=== PATIENT | female | born 1985 | race Caucasian/White ===

== ENCOUNTER 2017-02-27 17:38 | Inpatient (IN) | payer BC, OTHER ==
[~2017-02-27] VITALS: Ht 160 cm; Wt 65.8 kg
[2017-02-27] MEDS ORDERED: DIAZEPAM 5 MG TABLET PO PRN (18:30)
[2017-02-27] MEDS ORDERED: ONDANSETRON ODT 4 MG TAB.RAPDIS SL PRN (18:30)
[2017-02-27] MEDS ORDERED: DICYCLOMINE HCL 20 MG TABLET PO PRN (18:30)
[2017-02-27] MEDS ORDERED: MAGNESIUM HYDROXIDE 30 ML LIQUID UDC PO PRN (18:30)
[2017-02-27] MEDS ORDERED: DIAZEPAM 10 MG TABLET PO PRN ×2 (18:30)
[2017-02-27] MEDS ORDERED: MAG HYDROX/AL HYDROX/SIMETH 30 ML LIQUID UDC PO PRN (18:30)
[2017-02-27] MEDS ORDERED: BUPRENORPHINE HCL 2 MG TAB.SUBL SL PRN (18:30)
[2017-02-27] MEDS ORDERED: CLONIDINE HCL 0.1 MG TABLET PO PRN (18:30)
[2017-02-27] MEDS ORDERED: LOPERAMIDE HCL 2 MG CAPSULE PO PRN ×2 (18:30)
[2017-02-27] MEDS ORDERED: LORAZEPAM 2 MG/1 ML VIAL IM PRN (18:30)
[2017-02-27] MEDS ORDERED: ONDANSETRON 4 MG/2 ML VIAL IM PRN (18:30)
[2017-02-27] MEDS ORDERED: HYDROXYZINE PAMOATE 25 MG CAPSULE PO PRN (18:30)
[2017-02-27] MEDS ORDERED: diphenhydrAMINE 50 MG CAPSULE PO PRN (18:30)
[2017-02-27 19:53] LABS: *URINE HCG, QUAL NEGATIVE (NEGATIVE)
[2017-02-27 20:00] VITALS: BP 130/86
[2017-02-27 20:08] LABS: *AMPHETAMINE, URINE NEGATIVE (NEGATIVE); *BARBITURATE, URINE NEGATIVE (NEGATIVE); *CANNABINOID, URINE NEGATIVE (NEGATIVE); *COCCAINE, URINE NEGATIVE (NEGATIVE); *OPIATE, URINE POSITIVE (NEGATIVE); *PHENCYCLIDINE SCREEN,URINE NEGATIVE (NEGATIVE)
[2017-02-27 21:29] LABS: BASOPHILS % (AUTO) 0.6 % (0.0-2.0); EOSINOPHILS # (AUTO) 0.5 K/uL (0.0-0.7); EOSINOPHILS % (AUTO) 5.7 % (0.0-7.0); HEMATOCRIT 40.7 % (37.0-47.0); HEMOGLOBIN 13.7 g/dL (12.0-16.0); LYMPHOCYTES # (AUTO) 1.9 K/uL (0.8-4.8); LYMPHOCYTES % (AUTO) 23.2 % (20.5-51.5); MEAN CORPUSCULAR HEMOGLOBIN 31.3 uug (27.0-31.0); MEAN CORPUSCULAR HGB CONC 34 g/dL (32.0-37.0); MEAN CORPUSCULAR VOLUME 92.8 fL (81.0-99.0); MONOCYTES # (AUTO) 0.6 K/uL (0.1-1.30); MONOCYTES % (AUTO) 7.5 % (0.0-11.0); NEUTROPHILS # (AUTO) 5.3 K/uL (1.8-8.9); PLATELET COUNT (AUTO) 248 K/uL (150-450); RED BLOOD CELL COUNT(AUTO) 4.38 MIL/uL (4.20-5.40); RED CELL DISTRIBUTION WIDTH 13.2 % (11.5-14.5); WHITE BLOOD COUNT (AUTO) 8.3 K/uL (4.0-11.2)
--- NOTE | 2017-02-27 21:30 | NUR ---
ADMISSION NOTE BP: 130/86 HR: 88 RR: 16 SpO2: 95 % T: 97.8 Pain: denies pain at this time Ht: 5'3" Wt: 145 lbs COWS:2, CIWA:2 Pt arrived ambulatory from [facility] Intake to the third floor accompanied by a BHT at 1850. Pt is a 31 year old female who was admitted on 02/27/17 for benzodiazepine and opiate dependency. Pt is full code with allergy to sulfa. She reports PMHx of laparoscopic surgery 6 years ago, endometriosis, and anxiety. She reports a history of seizure " a couple years ago" related to benzodiazepine withdrawal. She denies any recent falls. She denies having a PCP. She reports taking home medications of: 1. Ibuprofen 800 mg 2. Tylenol 600 mg She verbalized that she is here for Xanax and Heroin dependency. She reports that she was recently at a treatment center ( unable to recall name of center) in January 2017 for 30 days. She describes her current use as: 1. Xanax 2 -6 mg daily for 3 weeks. Last dose: "3 bars" on 02/27/17 2. Heroin 1 gram IV daily for 3 weeks. Last dose: pt unable to recall amount, 02/27/17 She describes her withdrawal symptoms as " irritable, sweaty, chills, diarrhea, back pain and nausea." Upon assessment, pt is alert and oriented x4. She appears tired, calm and cooperative. Able to answer interview questions. Speech is slurred but audible. Heart rate is regular, pt denies any chest pain or SOB. PERRLA, breathing is even and unlabored. Lung sounds clear. Abdomen is soft and non distended, bowel sounds present, last BM (02/27/17). Pt reports that BM is regular. Pt noted with "possible" abscess to right buttock. She states " I tried to shoot up there." She reports pain upon palpation. No drainage noted. Photo taken and placed in chart. MD aware of pt's admission. She was oriented to room and unit. Breathing is even and unlabored, safety measures in place. Will continue to monitor.
[2017-02-27 21:48] LABS: ALANINE AMINOTRANSFERASE 22 U/L (14-59); ALBUMIN 3.7 g/dL (3.4-5.0); ALKALINE PHOSPHATASE 68 U/L (50-136); ASPARTATE AMINOTRANSFERASE 20 U/L (15-37); BILIRUBIN,TOTAL 0.3 mg/dL (0.2-1.0); CALCIUM 8.9 mg/dL (8.5-10.1); CARBON DIOXIDE 32 mmol/L (21-32); CHLORIDE 104 mmol/L (98-107); CREATININE 0.8 mg/dL (0.6-1.3); GFR 84 mL/min (>60); GLUCOSE 95 mg/dL (74-106); POTASSIUM 3.6 mmol/L (3.5-5.1); SODIUM SERUM 142 mmol/L (136-145); TOTAL PROTEIN, SERUM 7.3 g/dL (6.4-8.2); UREA NITROGEN, BLOOD 11 mg/dL (7-18)
[2017-02-27 21:58] LABS: ETHANOL < 3 MG/DL (0-0)
[2017-02-27 22:08] LABS: HIV-1 p24 ANTIGEN NON REACTIVE (NONREACTIVE); HIV-1/2 ANTIBODY NON REACTIVE (NONREACTIVE)
[2017-02-27 22:16] LABS: THYROID STIMULATING HORMONE 1.506 mIU/mL (0.358-3.740)
[2017-02-28] VITALS: BP_SYST 108; BP_SYST 112; BP_DIAS 62; BP_DIAS 72
[2017-02-28] MEDS ORDERED: IBUP-1482 PO (02:15)
[2017-02-28] MEDS ORDERED: ACET-2154 PO (02:15)
[2017-02-28] MEDS: IBUPROFEN 600 MG TABLET PO PRN ×3 (02:20→18:04)
--- NOTE | 2017-02-28 02:22 | NUR ---
PRN IBUPROFEN Pt complains of headache 06/03. PRN Ibuprofen administered as ordered. Breathing even and unlabored, respirations 16. Safety measures in place, will continue to monitor effectiveness of medication.
--- NOTE | 2017-02-28 03:22 | NUR ---
PRN IBUPROFEN REASSESSMENT PRN medication effective. Pt lying comfortably in bed with eyes closed noted to be asleep. Respirations 16, breathing is even and unlabored. Pt safe with bed locked in lowest position, side rails up x2 and call light within reach. Will continue to monitor.
[2017-02-28 04:00] VITALS: BP 125/83
[2017-02-28] MEDS: METHOCARBAMOL 750 MG TABLET PO PRN ×2 (05:50→18:04)
--- NOTE | 2017-02-28 05:50 | NUR ---
PRN ROBAXIN Pt complains of lower back muscle pain 05/04. PRN Robaxin administered as ordered. Breathing even and unlabored, safety measures in place. Will continue to monitor effectiveness.
--- NOTE | 2017-02-28 05:57 | NUR ---
PRN VALIUM Pt complains of anxiety. Pt appears flushed, anxious and agitated. Pt noted to be sitting up, restless in bed. CIWA:6. PRN Valium administered as ordered. Breathing is even and unlabored, safety measures in place. Will continue to monitor effectiveness.
--- NOTE | 2017-02-28 06:50 | NUR ---
PRN ROBAXIN REASSESSMENT PRN Robaxin effective. Pt lying in bed noted to be asleep. No evidence of pain at this time. Respirations 16, breathing is even and unlabored. Pt safe with bed locked in lowest position, side rails up x2 and call light within reach. Will continue to monitor.
--- NOTE | 2017-02-28 06:57 | NUR ---
PRN VALIUM REASSESSMENT PRN medication effective. Pt appears to be calm, no anxiety or restlessness noted. Pt lying in bed with eyes closed, and is asleep. Respirations 16, breathing is even and unlabored. Will endorse.
--- NOTE | 2017-02-28 07:15 | NUR ---
END OF SHIFT Pt remained stable during shift. Pt complained of headache and received PRN Motrin. She also complained of lower back muscle pain and received PRN Robaxin. Pt experienced anxiety/agitation, and appeared flushed related to withdrawal and received Valium 5 mg for CIWA:6. @ 0557. PRN medications were effective. She slept a total of 5 hrs, Intake:[id number] Void:x1 BM:0 Breathing is even and unlabored. Pt safe with bed locked in lowest position, side rails up x2 and call light within reach. Endorsed to AM shift.
[2017-02-28 08:00] VITALS: BP 112/72
--- NOTE | 2017-02-28 08:00 | NUR ---
START OF SHIFT NOTE: Received report from power and recovery shift engineer nurse. Patient is 31 year old female, admitted for Xanax and Heroin IV dependence, admitted on 02/27/17. Patient is alert and oriented X4, denies any chest pain, SOB, dizziness, n/v at this time. Vital signs WNL. Patient is full code, on regular diet and allergy is sulfa drugs. On seizure and fall precautions. Patient is ambulatory with steady gait. Slept 5 hours and received prn motrin and Robaxin from power and recovery shift engineer. On 4 day taper on Valium starting 02/29/16 and 4 day Subutex starting 02/28/17. Recent CIWA was 6 and COWS was 4. Pending MRSA swab. Will continue to monitor patient.
[2017-02-28] MEDS: BUPRENORPHINE HCL 2 MG TAB.SUBL SL SCH ×3 (09:00→21:23)
[2017-02-28] MEDS ORDERED: TUBERCULIN,PURIF.PROT.DERIV. 5 TU/0.1 ML TEST ID ONE (09:00)
--- NOTE | 2017-02-28 09:00 | NUR ---
SUBUTEX HOLD Pt with cows=8. Pt denies any chills or sweats at this time. No distress noted at this time. Will continue to monitor and assess.
[2017-02-28] MEDS: ESCITALOPRAM OXALATE 10 MG TABLET PO SCH (09:10)
[2017-02-28] MEDS: MULTIVITAMINS,THERAPEUTIC TABLET PO SCH (09:11)
--- NOTE | 2017-02-28 09:11 | NUR ---
PRN MEDICATION (IBUPROFEN AND CLONIDINE) Patient complained of body pain and anxiety. PRN clonidine and ibuprofen were given to patient.
[2017-02-28] MEDS: DIAZEPAM 10 MG TABLET PO SCH ×3 (09:12→21:22)
[2017-02-28] MEDS: GABAPENTIN 300 MG CAPSULE PO SCH ×2 (09:12→21:22)
--- NOTE | 2017-02-28 10:00 | NUR ---
REASSESSMENT Patient reports pain decreased 3/10 and reports feeling calmer. PRN meds effective.
[2017-02-28 12:00] VITALS: BP 102/62
--- NOTE | 2017-02-28 12:21 | NUR ---
PRN SUBUTEX Patient's COWS is 14. Patient complains of discomfort and increased signs and symptoms of withdrawals, patient reported diaphoresis and fidgety. Patient was observed restless. PRN Subutex administered. Will continue to monitor patient.
--- NOTE | 2017-02-28 13:20 | NUR ---
REASSESSMENT Patient is resting in bed, appears calmer, no distress noted, pt. reports less diaphoresis and feels better at this time. COWS is 1 at this time.
[2017-02-28 16:00] VITALS: BP 105/67
[2017-02-28] MEDS: BENZOCAINE ORAL CARE 12 ML BOTTLE MM PRN ×2 (17:49→21:24)
--- NOTE | 2017-02-28 17:59 | NUR ---
PRN ANBESOL Patient complained of R upper tooth ache, 9/10, throbbing pain. MD was notified and ordered Anbesol which was then administered to patient. Medication education provided to patient, pt. verbalized understanding. Will continue to monitor patient.
--- NOTE | 2017-02-28 18:04 | NUR ---
PRN PAIN MEDICATION (IBUPROFEN AND ROBAXIN) Patient complained of pain on low back 7/10 and generalized pain 3/10. PRN ibuprofen and motrin administered, effective.
--- NOTE | 2017-02-28 18:59 | NUR ---
REASSESSMENT PRN PAIN MEDICATION (ANBESOL) Patient reports pain is decreased after receiving prn pain medications.
--- NOTE | 2017-02-28 19:00 | NUR ---
REASSEMENT (IBUPROFEN AND ROBAXIN) Patient reports decreased pain. PRN meds effective.
--- NOTE | 2017-02-28 19:02 | NUR ---
END OF SHIFT NOTE Patient is 31 year old female, admitted for Xanax and Heroin IV dependence on 02/27/17. Patient is alert and oriented X4, denies any chest pain, SOB, dizziness, n/v at this time. Vital signs WNL. Patient is full code, on regular diet and allergy is sulfa drugs. On seizure and fall precautions. Patient is ambulatory with steady gait. MRSA swab done. Start of shift CIWA is 4 and COWS is 8. On day 1 of 4 taper Valium (started 02/29/16) and Day 1 of 4 Subutex (started 02/28/17). Scheduled Subutex held, MD aware. PRN Subutex administered at 12:21pm with COWS score of 14, pt. reassessed with COWS score of 1. Complained of R toothache 9/10, PRN Anbesol given. Most recent CIWA is 2 and COWS is 5. BM X1, diarrhea per patient report. metal refinershift mechanic will continue to monitor patient.
--- NOTE | 2017-02-28 19:15 | NUR ---
START OF SHIFT Received 31 year old female patient admitted on 02/27/17 for Xanax and Heroin dependency. Pt is full code with allergy to sulfa. She is placed on 4 day Subutex and 4 day Valium taper and tolerating well. Per endorsement, she received PRN Motrin, clonidine, anbesol and robaxin. Pt is alert and oriented x4, breathing is even and unlabored. Pt safe with bed locked in lowest position, side rails up x2 and call light within reach. Will continue to monitor.
[2017-02-28 20:00] VITALS: BP 121/72
--- NOTE | 2017-02-28 21:24 | NUR ---
PRN ANBESOL Pt complains of right upper tooth pain 05/04. PRN Anbesol administered as ordered. Will monitor effectiveness.
--- NOTE | 2017-02-28 21:55 | NUR ---
PRN ANBESOL REASSESSMENT Pt reports Anbesol gave temporary relief and still complains of pain 05/04. Will continue to monitor.
[2017-02-28] MEDS: ACETAMINOPHEN 325 MG TABLET PO PRN (22:05)
--- NOTE | 2017-02-28 22:05 | NUR ---
PRN TYLENOL Pt complains of 6/10 right upper tooth pain unrelieved by Anbesol. PRN Tylenol administered as ordered. Will continue to monitor effectiveness.
--- NOTE | 2017-02-28 23:05 | NUR ---
PRN TYLENOL REASSESSMENT PRN medication effective. Pt lying in bed resting comfortably with eyes closed. No s/s of facial grimacing noted. Respirations 16, breathing is even and unlabored. Safety measures in place. Will continue to monitor.
[2017-03-01] VITALS: BP 106/79
[2017-03-01 04:00] VITALS: BP 104/56
[2017-03-01] MEDS: ACETAMINOPHEN 325 MG TABLET PO PRN ×2 (05:57→13:13)
[2017-03-01] MEDS: BENZOCAINE ORAL CARE 12 ML BOTTLE MM PRN ×4 (06:00→20:40)
[2017-03-01] MEDS: METHOCARBAMOL 750 MG TABLET PO PRN ×2 (06:00→15:00)
--- NOTE | 2017-03-01 06:00 | NUR ---
PRN ANBESOL/TYLENOL/ROBAXIN Pt complains of toothache 08/04 and requesting PRN Anbesol and Tylenol. PRN Anbesol and Tylenol administered as ordered. Pt complains of lower back muscle aches 06/03, PRN Robaxin administered as ordered. Will continue to monitor effectiveness.
--- NOTE | 2017-03-01 07:00 | NUR ---
PRN ANBESOL/TYLENOL REASSESSMENT PRN medications effective. Pt observed to be lying comfortably in bed with no facial grimacing noted. Breathing is even and unlabored, respirations 16. Safety measures in place. Will endorse to AM shift. Addendum: 03/01/17 at 0726 by MEL FLOREZ RN PRN ANBESOL/TYLENOL/ROBAXIN REASSESSMENT.
--- NOTE | 2017-03-01 07:20 | NUR ---
END OF SHIFT Pt is stable and had an uneventful night. She received PRN medications of anbesol and Tylenol for her right upper tooth ache. PRN anbesol provided temporary relief for her pain, PRN tylenol was effective. At 0600 pt complained of toothache and back pain. She received PRN anbesol, tylenol, and robaxin with effect. She slept a total of 8 hrs, Intake: 850 mL Void:x3 BM:0. Pt remains alert and oriented x4, breathing is even and unlabored. Pt safe with bed locked in lowest position, side rails up x2 and call light within reach. Endorsed to oncoming nurse.
[2017-03-01 08:00] VITALS: BP 113/60
--- NOTE | 2017-03-01 08:00 | NUR ---
START OF SHIFT Pt 31 y/o female admitted for xanax and heroin. Pt received in room with eyes closed resting, but easily arousable to name. Pt alert and oriented to name, place, and time. Perrla. Skin warm and moist to touch. Perspiration observed on forehead. Respirations even and unlabored. Bilateral tremors noted slightly. Pt state she experiences chills and sweats throughout the night. It was reported that pt slept for 8 hours last night. Bed on lowest position with side rails x2up for safety. Call light within reach. No distress noted at this time.
[2017-03-01] MEDS: IBUPROFEN 600 MG TABLET PO PRN (08:56)
[2017-03-01] MEDS: MULTIVITAMINS,THERAPEUTIC TABLET PO SCH (08:56)
[2017-03-01] MEDS: ESCITALOPRAM OXALATE 10 MG TABLET PO SCH (08:56)
[2017-03-01] MEDS: GABAPENTIN 300 MG CAPSULE PO SCH ×2 (08:56→15:00)
[2017-03-01] MEDS: DIAZEPAM 5 MG TABLET PO SCH ×4 (08:56→20:39)
--- NOTE | 2017-03-01 08:56 | NUR ---
PRN Pt with c/o pain 6/10 generalized aching. Motrin po prn per MD order given and tolerated well.
[2017-03-01] MEDS ORDERED: BUPRENORPHINE HCL 2 MG TAB.SUBL SL SCH (09:00)
--- NOTE | 2017-03-01 09:56 | NUR ---
PRN EVAL Pt observed in bed with eyes closed resting, but easily arousable to name. No distress/discomfort noted at this time.
[2017-03-01 12:00] VITALS: BP 117/64
[2017-03-01 12:08] LABS: HCV AB <0.1 s/co ratio (0.0-0.9); HEPATITIS B CORE AB, IgM Negative (Negative); HEPATITIS B SURFACE AG Negative (Negative)
--- NOTE | 2017-03-01 13:13 | NUR ---
PRN Pt with c/o headache 03/04. tylenol po prn per MD order given and tolerated well.
[2017-03-01] MEDS: KETOROLAC TROMETHAMINE 30 MG INJ IM PRN (13:14)
--- NOTE | 2017-03-01 13:14 | NUR ---
PRN Pt with c/o body pain, aches 05/04. toradol IM prn per MD order given and tolerated well.
--- NOTE | 2017-03-01 13:15 | NUR ---
PRN Pt with c/o pain of tooth 6/10 aching. Benzocaine prn per MD order given and tolerated well.
--- NOTE | 2017-03-01 14:14 | NUR ---
PRN EVAL Pt observed in patio and states pain level is 2/10. No distress noted at this time.
--- NOTE | 2017-03-01 14:15 | NUR ---
ACACIA BEARDEN Pt observed walking around in the patio. No distress noted at this time.
[2017-03-01] MEDS: BUPRENORPHINE HCL 2 MG TAB.SUBL SL SCH ×2 (15:00→20:39)
--- NOTE | 2017-03-01 15:00 | NUR ---
PRN Pt with c/o generalized body aches 05/04. Robaxin po prn per MD order given and tolerated well.
[2017-03-01 16:00] VITALS: BP 100/60
--- NOTE | 2017-03-01 16:00 | NUR ---
PRN MONISHA Pt observed sitting in group activity. No distress noted at this time.
--- NOTE | 2017-03-01 17:14 | NUR ---
PRN Pt with c/o teeth aching 05/04. Benzocaine prn per MD order given and tolerated well.
--- NOTE | 2017-03-01 18:14 | NUR ---
PRN EVAL Pt states pain level 2/10.
--- NOTE | 2017-03-01 18:35 | NUR ---
END OF SHIFT Pt 31 y/o female admitted for xanax and heroin. Pt alert and oriented to name, place, and time. Perrla. Skin warm and slightly moist to touch. Respirations even and unlabored. Bilateral hand tremors noted slightly. Pt observed mostly isolative to room , but did go to patio a few times this afternoon. Pt was seen by Dr. Chavez today. Pt medication compliant and tolerated well. No ASE noted. Bed on lowest position with side rails x2 up for safety. Call light within reach. No distress noted at this time.
--- NOTE | 2017-03-01 19:55 | NUR ---
START OF SHIFT Received report from day shift nurse. Pt is lying in bed watching TV. She is a 31 yo female admitted to [facility] on 02/27 for Xanax and heroin IV. She is A&O x4 and ambulatory. Allergies to sulfa, full code status, and on a regular diet. She has a PMH of w/d related seizures, endometriosis, anxiety and laparoscopic surgery 6 years ago. She currently has tooth pain. On admission she admitted to using heroin IV 1 gram per day for 3 weeks and Xanax 2-6mg per day for 3 weeks. She started a 4 day valium and 4 day subutex taper on 02/28. She reports body aches, anxiety, and has moist skin. Tapers are due tonight. Fall and seizure precautions in place. Bed is down with call light in reach.
[2017-03-01 20:00] VITALS: BP 121/74
[2017-03-01] MEDS: NAPROXEN 500 MG TABLET PO SCH (20:38)
--- NOTE | 2017-03-01 20:45 | NUR ---
PRN Anbesol administration Pt c/o right upper tooth pain. PRN Anbesol administered per orders.
[2017-03-01] MEDS ORDERED: GABAPENTIN 300 MG CAPSULE PO SCH (21:00)
--- NOTE | 2017-03-01 21:15 | NUR ---
PRN Anbesol reassessment Pt reports Anbesol effective and relieving right upper quadrant tooth pain.
--- NOTE | 2017-03-02 | NUR ---
0000 Vitals deferred Pt refused to be woken for 0000 Vitals. Respirations even and unlabored. Bed is down with call light in reach.
[2017-03-02] MEDS: METHOCARBAMOL 750 MG TABLET PO PRN (03:42)
--- NOTE | 2017-03-02 03:45 | NUR ---
PRN Robaxin Pt woke up and c/o low back pain 05/04. PRN Robaxin administered.
[2017-03-02 04:00] VITALS: BP 102/59
--- NOTE | 2017-03-02 04:45 | NUR ---
PRN Robaxin reassessment PRN Robaxin effective. Pt is lying comfortably in bed resting with eyes closed. Respirations even and unlabored. Bed is down with call light in reach.
--- NOTE | 2017-03-02 07:15 | NUR ---
START OF SHIFT Report provided day shift nurse. Pt is lying in bed resting. She is a 31 yo female admitted to [facility] on 02/27 for Xanax and heroin IV. She is A&O x4 and ambulatory. Allergies to sulfa, full code status, and on a regular diet. She has a PMH of w/d related seizures, endometriosis, anxiety and laparoscopic surgery 6 years ago. She currently has right upper quadrant tooth pain. On admission she admitted to using heroin IV 1 gram per day for 3 weeks and Xanax 2-6mg per day for 3 weeks. She started a 4 day valium and 4 day subutex taper on 02/28. PRN Anbesol and Robaxin administered. Last COWS 4 and CIWA 3 at 0400. She drank 800mL and slept for 6 hours. Fall and seizure precautions in place. Bed is down with call light in reach. Addendum: 03/02/17 at 0173 by MONIQUE PETTIT RN Correction: END OF SHIFT
[2017-03-02 08:00] VITALS: BP 102/61
--- NOTE | 2017-03-02 08:00 | NUR ---
START OF SHIFT Pt 31 y/o female admitted for xanax and heroin. Pt received in room with eyes closed resting, but easily arousable to name. Pt alert and oriented to name, place, and time. Perrla. Skin warm and moist to touch. Respirations even and unlabored. Bilateral tremors noted slightly. Pt state she experiences chills and sweats throughout the night. It was reported that pt slept for 6 hours last night. Bed on lowest position with side rails x2up for safety. Call light within reach. No distress noted at this time.
[2017-03-02] MEDS: NAPROXEN 500 MG TABLET PO SCH ×2 (09:40→20:40)
[2017-03-02] MEDS: ESCITALOPRAM OXALATE 10 MG TABLET PO SCH (09:40)
[2017-03-02] MEDS: ACETAMINOPHEN 325 MG TABLET PO PRN ×2 (09:40→16:28)
[2017-03-02] MEDS: MULTIVITAMINS,THERAPEUTIC TABLET PO SCH (09:40)
[2017-03-02] MEDS: DIAZEPAM 5 MG TABLET PO SCH ×3 (09:40→20:41)
[2017-03-02] MEDS: BUPRENORPHINE HCL 2 MG TAB.SUBL SL SCH ×3 (09:40→20:41)
[2017-03-02] MEDS: GABAPENTIN 300 MG CAPSULE PO SCH ×3 (09:41→20:40)
[2017-03-02] MEDS: KETOROLAC TROMETHAMINE 30 MG INJ IM PRN (09:42)
[2017-03-02] MEDS: BENZOCAINE ORAL CARE 12 ML BOTTLE MM PRN ×3 (09:42→20:41)
--- NOTE | 2017-03-02 09:42 | NUR ---
PRN Pt with c/o tooth pain 05/04. Benzocaine prn per MD order given and tolerated well.
--- NOTE | 2017-03-02 09:43 | NUR ---
PRN Pt states pain 6/10 lower back ache. Tylenol po prn per MD order given and tolerated well.
--- NOTE | 2017-03-02 10:42 | NUR ---
PRN EVAL Pt states pain level of tooth ache 2/10.
--- NOTE | 2017-03-02 10:43 | NUR ---
PRN EVAL Pt states pain level 2/10 of lower back.
[2017-03-02 12:00] VITALS: BP 118/67
[2017-03-02] MEDS: BACLOFEN 20 MG TABLET PO SCH ×2 (14:40→20:40)
[2017-03-02] MEDS: LIDOCAINE 5% PATCH TD SCH (14:40)
[2017-03-02 16:00] VITALS: BP 121/81
[2017-03-02] MEDS: MIRALAX 17 GM POWD.PACK PO PRN (16:42)
[2017-03-02] MEDS ORDERED: HYDROXYZINE PAMOATE 25 MG CAPSULE PO PRN (18:15)
--- NOTE | 2017-03-02 18:45 | NUR ---
END OF SHIFT Pt 31 y/o female admitted for xanax and heroin. Pt alert and oriented to name, place, and time. Perrla. Skin warm and slightly moist to touch. Respirations even and unlabored. Bilateral hand tremors noted slightly. Pt observed mostly isolative to room , but did attend group activity. Pt was seen by Dr. Chavez today. Pt medication compliant and tolerated well. No ASE noted. Bed on lowest position with side rails x2 up for safety. Call light within reach. No distress noted at this time.
[2017-03-02 20:00] VITALS: BP 125/81
--- NOTE | 2017-03-02 20:05 | NUR ---
START OF SHIFT Received report from day shift nurse. Pt attended a group meeting and returned to her room after. She is a 31 yo female admitted to [facility] on 02/27 for Xanax and heroin IV. She is A&O x4 and ambulatory. Allergies to sulfa, full code status, and on a regular diet. She has a PMH of w/d related seizures, endometriosis, anxiety and laparoscopic surgery 6 years ago. She has been experiencing right upper quadrant tooth pain. Routine and PRN medications ordered for pain management. On admission she admitted to using heroin IV 1 gram per day for 3 weeks and Xanax 2-6mg per day for 3 weeks. She reports low back pain, headache, anxiety, and has moist skin. She started a 4 day valium and 4 day subutex taper on 02/28. Fall and seizure precautions in place. Bed is down with call light in reach. Addendum: 03/03/17 at 0006 by MONIQUE PETTIT RN Pt reports having one regular bowel movement during the day following PRN Miralax administration.
--- NOTE | 2017-03-02 20:42 | NUR ---
PRN Anbesol administration Pt reports right upper quadrant tooth pain. PRN Anbesol administered.
--- NOTE | 2017-03-02 21:42 | NUR ---
PRN Anbesol reassessment PRN Anbesol effective. Pt reports Anbesol was effective at providing right upper quadrant tooth pain relief.
--- NOTE | 2017-03-03 | NUR ---
0000 Vitals deferred Pt refused to be woken for 0000 Vitals. Respirations even and unlabored. Bed is down with call light in reach.
--- NOTE | 2017-03-03 04:00 | NUR ---
0400 Vitals deferred Pt refused to be woken for 0400 Vitals. Respirations even and unlabored. Bed is down with call light in reach.
--- NOTE | 2017-03-03 07:19 | NUR ---
END OF SHIFT Report provided to day shift nurse. Pt is lying in bed resting. She is a 31 yo female admitted to [facility] on 02/27 for Xanax and heroin IV. She is A&O x4 and ambulatory. Allergies to sulfa, full code status, and on a regular diet. She has a PMH of w/d related seizures, endometriosis, anxiety and laparoscopic surgery 6 years ago. She has right upper quadrant tooth pain. On admission she admitted to using heroin IV 1 gram per day for 3 weeks and Xanax 2-6mg per day for 3 weeks. Pt started a 4 day valium and 4 day subutex taper on 02/28. PRN Anbesol administered for tooth pain. Last COWS 4 and CIWA 6. She drank 1210mL and slept 8 hours. Fall and seizure precautions in place. Bed is down with call light in reach.
[2017-03-03 08:00] VITALS: BP 117/75
--- NOTE | 2017-03-03 08:10 | NUR ---
START OF SHIFT: RECEIVED PT A/O X 4. SHE REPORTS MILD NAUSEA, BODY ACHES, ANXIETY AND RESTLESSNESS.MODIFIED VALIUM/SUBUTEX TAPER IN PROGRESS. COWS 4 CIWA 3. ENCOURAGED INCREASED FLUIDS TO ASSIST IN FACILITATING DETOX PROCESS. VS WNL. PT STATES SHE HAS BEEN ATTENDING SOME GROUPS. WILL CONTINUE TO MONITOR AND OFFER SUPPORT.
[2017-03-03] MEDS: FAMOTIDINE 20 MG TABLET PO SCH (08:11)
[2017-03-03] MEDS: NAPROXEN 500 MG TABLET PO SCH ×2 (08:11→20:31)
[2017-03-03] MEDS: MULTIVITAMINS,THERAPEUTIC TABLET PO SCH (08:11)
[2017-03-03] MEDS: BACLOFEN 20 MG TABLET PO SCH ×3 (08:11→20:31)
[2017-03-03] MEDS: DIAZEPAM 5 MG TABLET PO SCH ×2 (08:11→20:32)
[2017-03-03] MEDS: ESCITALOPRAM OXALATE 10 MG TABLET PO SCH (08:11)
[2017-03-03] MEDS: GABAPENTIN 300 MG CAPSULE PO SCH ×3 (08:12→20:32)
[2017-03-03] MEDS: LIDOCAINE 5% PATCH TD SCH (08:13)
[2017-03-03] MEDS ORDERED: BUPRENORPHINE HCL 2 MG TAB.SUBL SL SCH (09:00)
[2017-03-03 12:00] VITALS: BP 123/86
--- NOTE | 2017-03-03 13:20 | NUR ---
PRN administration Pt c/o of a headache of 5/10, and anxiety. Administered PRN tylenol and vistaril per MD order.
[2017-03-03] MEDS: ACETAMINOPHEN 325 MG TABLET PO PRN (13:21)
--- NOTE | 2017-03-03 13:55 | NUR ---
PRN TYLENOL EFFECTIVE AND VISTARIL PRN EFFECTIVE PT IS ASLEEP. RESPIRATIONS EVEN AND UNLABORED. WILL CONTINUE TO MONITOR.
[2017-03-03] MEDS: DICYCLOMINE HCL 20 MG TABLET PO SCH ×2 (15:56→20:30)
[2017-03-03] MEDS: BUPRENORPHINE HCL 2 MG TAB.SUBL SL SCH ×2 (15:57→20:32)
[2017-03-03] MEDS: CLONIDINE HCL 0.1 MG TABLET PO SCH ×2 (15:57→20:31)
[2017-03-03 16:00] VITALS: BP 100/53
--- NOTE | 2017-03-03 19:26 | NUR ---
END OF SHIFT: PT CONTINUES ON SUBUTEX/VALIUM TAPER. SHE C/O BODY ACHES,ANXIETY CHILLS AND RESTLESSNESS THIS AM. SHE REPORTED THAT DETOX MEDS ARE EFFECTIVE IN REDUCING S/S OF W/D. LAST COWS 2 CIWA 2. SHE C/O H/A 5/10 AND ANXIETY THIS AFTERNOON AND PRN VISTARIL AND PRN TYLENOL WERE GIVEN AND EFFECTIVE. PT SLEPT SOME OF THE AFTERNOON AFTER GETTING PRNS. PT ATTENDED SOME GROUPS AND ACTIVITIES. WILL PASS SHIFT REPORT TO [facility] NIGHT NURSE.
--- NOTE | 2017-03-03 19:30 | NUR ---
START OF SHIFT-- PT IS 31 Y/O FEMALE ADMITTED ON 02/27/17 FOR HEROIN AND XANAX DEPENDENCY.ON REGULAR DIET,FULL CODE,ALLERGIC TO SULFA. LAST COWS 2 CIWA 2. A/O X 4.RECEIVED IN STABLE CONDITION.V/S HAVE BEEN STABLE RESPIRATIONS EVEN AND NON LABORED.FALL AND SZ PRECAUTIONS OBSERVED AT ALL TIMES.ALL SAFETY MEASURES IN PLACE.CALL LIGHT WITHIN REACH.WILL CONTINUE TO MONITOR.
[2017-03-03 20:00] VITALS: BP 100/63
[2017-03-03] MEDS: BENZOCAINE ORAL CARE 12 ML BOTTLE MM PRN (22:53)
[2017-03-03] MEDS: KETOROLAC TROMETHAMINE 30 MG INJ IM PRN (22:53)
[2017-03-03] MEDS: MIRALAX 17 GM POWD.PACK PO PRN (22:54)
--- NOTE | 2017-03-03 22:55 | NUR ---
PRN MEDS-- PRN TORADOL IM,MIRALAX PO AND ANBESOL TOPICAL MEDS GIVEN ORDERED PER PT REQUEST.WILL MONITOR.
--- NOTE | 2017-03-03 23:55 | NUR ---
PRN F/U-- PT VERBALIZES A DECREASE IN BACK PAIN AND TOOTHACHE.MIRALAX EFFECT STILL PENDING.WILL MONITOR.
[2017-03-04] VITALS: BP 90/40
[2017-03-04 04:00] VITALS: BP 95/40
--- NOTE | 2017-03-04 06:45 | NUR ---
END OF SHIFT-- PT IS 31 Y/O FEMALE ADMITTED ON 02/27/17 FOR HEROIN AND XANAX DEPENDENCY.ON REGULAR DIET,FULL CODE,ALLERGIC TO SULFA. LAST COWS 1 CIWA 1. A/O X 4.RECEIVED IN STABLE CONDITION.V/S HAVE BEEN STABLE RESPIRATIONS EVEN AND NON LABORED.FALL AND SZ PRECAUTIONS OBSERVED AT ALL TIMES.PRN MEDS TORADOL,ANBESOL AND MIRALAX GIVEN LAST NIGHT.MIRALAX RESULT STILL PENDING.PT SLEPT 7 HRS;FLUID INTAKE WAS 1250 MLS;URINE X 3 .ALL SAFETY MEASURES IN PLACE.CALL LIGHT WITHIN REACH.WILL CONTINUE TO MONITOR.
--- NOTE | 2017-03-04 07:40 | NUR ---
START OF SHIFT NOTE Received report from night nurse, 31 year old female admitted for Xanax and heroin IV dependence. Pt reported PMH of w/d related seizures, endometriosis, anxiety and laparoscopic surgery 6 years ago. Pt was on 4 day Valium and 4 day Subutex taper which was started on 02/28. Pt received PRN Anbesol for tooth pain, Miralax,Toradol. Last COWS-1, and CIWA 1. Pt slept for 7 hours. Upon assessment pt is c/o of tooth ache 02/01. No s/s of distress noted. Skin intact warm and dry tot touch. Vital signs stable. Safety measures in place, call light within reach. Will cont to monitor.
[2017-03-04 08:00] VITALS: BP 122/77
[2017-03-04] MEDS: ESCITALOPRAM OXALATE 10 MG TABLET PO SCH (08:25)
[2017-03-04] MEDS: BACLOFEN 20 MG TABLET PO SCH ×3 (08:25→20:53)
[2017-03-04] MEDS: MULTIVITAMINS,THERAPEUTIC TABLET PO SCH (08:26)
[2017-03-04] MEDS: NAPROXEN 500 MG TABLET PO SCH ×2 (08:26→20:53)
[2017-03-04] MEDS: GABAPENTIN 300 MG CAPSULE PO SCH ×3 (08:26→20:53)
[2017-03-04] MEDS: FAMOTIDINE 20 MG TABLET PO SCH (08:26)
[2017-03-04] MEDS: DICYCLOMINE HCL 20 MG TABLET PO SCH ×3 (08:26→20:51)
[2017-03-04] MEDS: LIDOCAINE 5% PATCH TD SCH (08:28)
[2017-03-04] MEDS ORDERED: BUPRENORPHINE HCL 2 MG TAB.SUBL SL SCH (09:00)
[2017-03-04] MEDS: CLONIDINE HCL 0.1 MG TABLET PO SCH ×3 (09:52→20:51)
[2017-03-04 12:00] VITALS: BP 108/72
[2017-03-04] MEDS: ACETAMINOPHEN 325 MG TABLET PO PRN (13:36)
[2017-03-04] MEDS: AMOXICILLIN-CLAVUL 500-125MG TABLET PO SCH ×2 (13:36→20:51)
[2017-03-04] MEDS: LACTOBACILLUS RHAMNOSUS GG 1 EACH CAPSULE PO SCH ×2 (13:36→20:52)
--- NOTE | 2017-03-04 14:28 | NUR ---
REFUSED MED Pt refused her scheduled Clonidine 0.1mg offered x3 risk and benefits explained. Pt still refused. MD aware. Safety measures in place, call light within reach. Will cont to monitor.
[2017-03-04] MEDS: KETOROLAC TROMETHAMINE 30 MG INJ IM PRN (15:50)
--- NOTE | 2017-03-04 15:54 | NUR ---
PRN MEDS PRN Toradol IM given for right sided mouth pain 08/04. Will monitor effectiveness.
[2017-03-04 16:00] VITALS: BP 117/73
--- NOTE | 2017-03-04 16:54 | NUR ---
REASSESSMENT Pt reported medication effective, pain subside to 3/10. Will cont to monitor.
[2017-03-04] MEDS: BENZOCAINE ORAL CARE 12 ML BOTTLE MM PRN ×2 (17:20→20:54)
--- NOTE | 2017-03-04 17:20 | NUR ---
PRN ANBESOL Pt reports tooth pain, 3. PRN Anbesol administered. Will cont to monitor for effectiveness.
[2017-03-04 18:18] LABS: *AMPHETAMINE, URINE NEGATIVE (NEGATIVE); *BARBITURATE, URINE NEGATIVE (NEGATIVE); *CANNABINOID, URINE NEGATIVE (NEGATIVE); *COCCAINE, URINE NEGATIVE (NEGATIVE); *OPIATE, URINE POSITIVE (NEGATIVE); *PHENCYCLIDINE SCREEN,URINE NEGATIVE (NEGATIVE)
--- NOTE | 2017-03-04 18:20 | NUR ---
REASSESSMENT Pt reported medication effective, tooth ache subside to 12/04. Will cont to monitor.
--- NOTE | 2017-03-04 19:33 | NUR ---
END OF SHIFT NOTE: Gave report to night nurse, 31 year old female admitted for Xanax and heroin IV dependence. Pt reported PMH of w/d related seizures, endometriosis, anxiety and laparoscopic surgery 6 years ago. Pt completed 4 day Valium and 4 day Subutex taper tolerated well. Pt received PRN Toradol/Anbesol for tooth ache. Pt was seen by Dr. Chavez and started on Po ATB for tooth infection no s/s of adverse reaction noted. Encouraged Po fluids as tolerated. Pt scheduled for discharge in AM, urine drug screen completed. Pt's total intake of fluids 3037ml voided x4. Safety measures in place, call light within reach. Pt endorsed to night nurse in stable condition.
--- NOTE | 2017-03-04 19:40 | NUR ---
START OF SHIFT Pt is a 31 year old female admitted for Xanax and heroin IV dependence. Pt completed 4 day Valium and 4 day Subutex taper tolerated well. Pt was seen by Dr. Chavez and started on Po ATB for tooth infection no s/s of adverse reaction noted. Encouraged Po fluids as tolerated. Pt scheduled for discharge in AM, urine drug screen completed. Safety measures in place . Bed in lowest position, side rails up x2, call-light within reach. Will continue to monitor.
[2017-03-04 20:00] VITALS: BP 117/69
[2017-03-04] MEDS: MIRALAX 17 GM POWD.PACK PO PRN (20:54)
--- NOTE | 2017-03-04 21:00 | NUR ---
PRN MEDS-- PRN MIRALAX AND ANBESOL GIVEN ORDERED PER PT REQUEST.WILL MONITOR.
[2017-03-04] MEDS ORDERED: BENZ12LI MM (21:30)
[2017-03-04] MEDS ORDERED: Naproxen PO (21:30)
[2017-03-04] MEDS ORDERED: DICY20TA28 PO (21:30)
[2017-03-04] MEDS ORDERED: DIPH50CA37 PO (21:30)
[2017-03-04] MEDS ORDERED: Gabapentin PO ×2 (21:30)
[2017-03-04] MEDS ORDERED: Amox Tr/Potassium Clavulanate PO (21:30)
[2017-03-04] MEDS ORDERED: HYDR-3895 PO (21:30)
[2017-03-04] MEDS ORDERED: Baclofen PO (21:30)
[2017-03-04] MEDS ORDERED: LIDO30AD10 TD (21:30)
[2017-03-04] MEDS ORDERED: Famotidine PO (21:30)
[2017-03-04] MEDS ORDERED: CLON0.1T14 PO (21:30)
--- NOTE | 2017-03-04 22:00 | NUR ---
PRN F/U-- TOOTHACHE RELIEVED,MIRALAX RESULT STILL PENDING.
[2017-03-05] VITALS: BP 109/62
[2017-03-05 04:00] VITALS: BP 100/59
--- NOTE | 2017-03-05 06:44 | NUR ---
END OF SHIFT-- Pt is a 31 year old female admitted for Xanax and heroin IV dependence. Pt completed 4 day Valium and 4 day Subutex taper tolerated well. Pt was seen by Dr. Chavez and started on Po ATB for tooth infection no s/s of adverse reaction noted. Encouraged Po fluids as tolerated. PRN Miralax given for c/o constipation.Pt scheduled for discharge this morning, urine drug screen completed. Pt slept 7 hrs last noght;fluid intake was 1355 mls;voided x 3 .Last COWS 1,CIWA 2. Safety measures in place . Bed in lowest position, side rails up x2, call-light within reach. Will continue to monitor.
--- NOTE | 2017-03-05 07:10 | NUR ---
Start of shift note Pt was admitted for benzo and opiate dependence. Pt has a PMH of anxiety, endormetrosis, withdrawal induced seizures and a laproscopic surgery 6 years ago. Pt is a full code, on a regular diet, has an allergy to sulfa. Pt has completed a valium and subutex taper without any ASE. Pt states that she feels ready for discharge. All needs addressed at this time. Will continue to monitor pt.
[2017-03-05 08:00] VITALS: BP 109/74
[2017-03-05] MEDS: NAPROXEN 500 MG TABLET PO SCH (08:02)
[2017-03-05 08:21] VITALS: BP 120/70
[2017-03-05] MEDS: DICYCLOMINE HCL 20 MG TABLET PO SCH (08:21)
[2017-03-05] MEDS: FAMOTIDINE 20 MG TABLET PO SCH (08:21)
[2017-03-05] MEDS: BACLOFEN 20 MG TABLET PO SCH (08:21)
[2017-03-05] MEDS: MULTIVITAMINS,THERAPEUTIC TABLET PO SCH (08:21)
[2017-03-05] MEDS: GABAPENTIN 300 MG CAPSULE PO SCH (08:21)
[2017-03-05] MEDS: AMOXICILLIN-CLAVUL 500-125MG TABLET PO SCH (08:21)
[2017-03-05] MEDS: CLONIDINE HCL 0.1 MG TABLET PO SCH (08:21)
[2017-03-05] MEDS: ESCITALOPRAM OXALATE 10 MG TABLET PO SCH (08:21)
[2017-03-05] MEDS: LACTOBACILLUS RHAMNOSUS GG 1 EACH CAPSULE PO SCH (08:21)
[2017-03-05] MEDS: LIDOCAINE 5% PATCH TD SCH (08:21)
[2017-03-05] MEDS: BENZOCAINE ORAL CARE 12 ML BOTTLE MM PRN (08:22)
[2017-03-05] MEDS: KETOROLAC TROMETHAMINE 30 MG INJ IM PRN (08:22)
--- NOTE | 2017-03-05 08:30 | NUR ---
PRN administration Pt c/o pain 8/10 in right upper tooth. Held naproxen, administered toradol IM to R gluteal and administered ambosol. Pt tolerated well, will continue to monitor pt.
--- NOTE | 2017-03-05 09:00 | NUR ---
Reassessment Pt states that her pain is now 3/10 and that she is comfortable. Will continue to monitor pt.
--- NOTE | 2017-03-05 10:30 | NUR ---
Discharge note Pt was admitted for opiate and benzo dependence. Pt has a CIWA of 2 and a COWS of 2. Pt VS are WNL. Pt LBM 03/05/17. Pt states that she feels ready for discharge and verbalized her understanding of the discharge instructions. Pt prescriptions, discharge instructions and belongings returned to pt. All needs addressed at this time. Pt ID band removed. Pt ambulated off of unit with [employer], left facility via [facility] roll transport for Design to change.
== END 2017-03-05 10:30 | disposition other institution (70) | DRG 895 ==
LOC: SRC 17:45
PROVIDERS: ADMIT Internal Medicine; ATTEND Internal Medicine
PROC: HZ2ZZZZ Detoxification Services for Substance Abuse Treatment (ICD-10-PCS; principal; 2017-02-27)
PROC: HZ31ZZZ Individual Counseling for Substance Abuse Treatment, Behavioral (ICD-10-PCS; 2017-02-28)
PROC: HZ41ZZZ Group Counseling for Substance Abuse Treatment, Behavioral (ICD-10-PCS; 2017-03-02)
DX: F11.23 Opioid dependence with withdrawal (principal); F13.230 Sedative, hypnotic or anxiolytic dependence with withdrawal, uncomplicated; N80.9 Endometriosis, unspecified; F41.9 Anxiety disorder, unspecified; Z82.49 Family history of ischemic heart disease and other diseases of the circulatory system; Z80.9 Family history of malignant neoplasm, unspecified; Z81.4 Family history of other substance abuse and dependence; F17.210 Nicotine dependence, cigarettes, uncomplicated; Z81.8 Family history of other mental and behavioral disorders; Z81.1 Family history of alcohol abuse and dependence; R26.81 Unsteadiness on feet; K03.81 Cracked tooth; K02.9 Dental caries, unspecified; K04.7 Periapical abscess without sinus
CPT/HCPCS: 36415; 70030-TC; 80307; 80346; 80361; 83735; 84443; 84703; 85025; 86580; 86592; 86705; 86803; 87340; 87806; A9150; G6040-TC; J1885